=== PATIENT | male | born 1945 ===

== ENCOUNTER 2020-02-07 06:00 | Outpatient (RCR) | payer MEDICARE, OTHER, SELFPAY | END 2020-02-07 23:59 | disposition home or self-care (01) | LOC: GPT 06:00 | PROVIDERS: Referring Provider Family Medicine; Visit Provider Family Medicine | DX: R51 Headache (principal) | CPT/HCPCS: 97110; 97161; 97530; G0283 ==

== ENCOUNTER 2020-02-08 06:00 | Outpatient (RCR) | payer MEDICARE, OTHER, SELFPAY | END 2020-03-08 23:59 | disposition home or self-care (01) | LOC: GPT 06:00 | PROVIDERS: Referring Provider Family Medicine; Visit Provider Family Medicine | DX: R51 Headache (principal); M54.2 Cervicalgia | CPT/HCPCS: 97110; 97140; 97530; G0283 ==

== ENCOUNTER 2020-03-09 06:00 | Outpatient (RCR) | payer MEDICARE, OTHER, SELFPAY | END 2020-04-08 23:59 | disposition home or self-care (01) | LOC: GPT 06:00 | PROVIDERS: Referring Provider Family Medicine; Visit Provider Family Medicine | DX: R51 Headache (principal) | CPT/HCPCS: 97110; 97530 ==

== ENCOUNTER 2020-03-29 06:00 | Outpatient (RCR) | payer MEDICARE, OTHER, SELFPAY | END 2020-04-08 23:59 | disposition home or self-care (01) | LOC: GPT 06:00 | PROVIDERS: Referring Provider Family Medicine; Visit Provider Family Medicine | DX: Z47.89 Encounter for other orthopedic aftercare (principal) | CPT/HCPCS: 97032; 97110; 97161; 97530; G0283 ==

== ENCOUNTER 2020-04-10 | Outpatient (RCR) | payer OTHER, SELFPAY | END 2020-05-03 23:00 | disposition home or self-care (01) | LOC: GPT | PROVIDERS: Referring Provider Family Medicine; Visit Provider Family Medicine | DX: Z47.89 Encounter for other orthopedic aftercare (principal) | CPT/HCPCS: 97032; 97110; 97140; 97530; G0283 ==

== ENCOUNTER 2020-04-12 06:00 | Outpatient (RCR) | payer OTHER, SELFPAY | END 2020-05-08 23:59 | disposition home or self-care (01) | LOC: GPT 06:00 | PROVIDERS: Referring Provider Orthopaedic Surgery; Visit Provider Orthopaedic Surgery | DX: Z47.89 Encounter for other orthopedic aftercare (principal) | CPT/HCPCS: 97110; 97112; 97116; 97161; 97530 ==

== ENCOUNTER 2020-05-09 04:51 | Outpatient (RCR) | payer OTHER, SELFPAY | END 2020-06-08 23:59 | disposition home or self-care (01) | LOC: GPT 04:51 | PROVIDERS: Referring Provider Orthopaedic Surgery; Visit Provider Orthopaedic Surgery | DX: Z47.89 Encounter for other orthopedic aftercare (principal) | CPT/HCPCS: 97110; 97112; 97530 ==

== ENCOUNTER 2022-08-11 06:00 | Outpatient (RCR) | payer OTHER, SELFPAY | END 2022-09-08 23:59 | disposition home or self-care (01) | LOC: GPT 06:00 | PROVIDERS: Visit Provider Physician Assistant | DX: Z09 Encounter for follow-up examination after completed treatment for conditions other than malignant neoplasm (principal) | CPT/HCPCS: 97110; 97140; 97161 ==

== ENCOUNTER 2022-09-09 14:10 | Outpatient (RCR) | payer OTHER, SELFPAY | END 2022-10-08 23:59 | disposition home or self-care (01) | LOC: GPT 14:10 | PROVIDERS: Visit Provider Physician Assistant | DX: Z09 Encounter for follow-up examination after completed treatment for conditions other than malignant neoplasm (principal) | CPT/HCPCS: 97110; 97140 ==